=== PATIENT | female | born 1950 | race Caucasian/White ===

== ENCOUNTER → 2016-12-07 | Outpatient (CLI) | payer MEDICARE, OTHER ==
--- NOTE | 2016-12-08 15:28 | RADRPT ---
PROCEDURE: XR Bilateral Knees CLINICAL INDICATION: Pain TECHNIQUE: AP, tunnel, lateral, and sunrise views were obtained of each knee. COMPARISON: None FINDINGS: Osseous structures: The osseous elements appear intact. . Joint spaces: Moderately severe osteoarthritic changes seen about the medial femoral tibial and slade llar femoral joint spaces bilaterally. No joint effusion is evident. Soft tissues: The soft tissues appear generous. IMPRESSION: Moderately severe osteoarthritic change involving the medial femoral tibial and patellar femoral katiuska nt spaces bilaterally. Marvin Colmenares Physician Date Time Electronically viewed and signed by Marvin Colmenares Physician on 12/08/2016 15:28 /
== END | disposition home or self-care (01) ==
LOC: HKI 15:04
PROVIDERS: ATTEND Orthopaedic Surgery
DX: M25.561 Pain in right knee (principal); M25.562 Pain in left knee; M17.0 Bilateral primary osteoarthritis of knee; E66.01 Morbid (severe) obesity due to excess calories
CPT/HCPCS: 73564; G0463